=== PATIENT | male | born 2000 ===

== ENCOUNTER 2019-05-01 09:08 | Outpatient (CLI) | payer OTHER | END 2019-05-01 10:07 | disposition home or self-care (01) | LOC: SONOGRAMA 09:08 | DX: S29.012A Strain of muscle and tendon of back wall of thorax, initial encounter (principal); S46.812A Strain of other muscles, fascia and tendons at shoulder and upper arm level, left arm, initial encounter; M25.512 Pain in left shoulder; M25.511 Pain in right shoulder ==